=== PATIENT | male | born 1945 | race Caucasian/White ===

== ENCOUNTER 2016-12-20 12:54 | Observation (INO) | payer MEDICARE, BC ==
[~2016-12-20] VITALS: Ht 182.9 cm; Wt 95.3 kg
[2016-12-20 13:47] LABS: HEMOGLOBIN 15.3 gm/dl (14.0-17.5); RED BLOOD COUNT 5.06 M/UL (4.20-5.50); WHITE BLOOD COUNT 9.5 K/UL (4.5-11.0)
[2016-12-20 14:08] LABS: BUN/CREATININE RATIO 15 (0-10)
[2016-12-20] MEDS ORDERED: LISINOPRIL10 MG PO (18:37)
[2016-12-20] MEDS ORDERED: SIMVASTATIN20 MG PO (18:38)
[2016-12-21 04:24] LABS: HEMOGLOBIN 13.7 gm/dl (14.0-17.5); RED BLOOD COUNT 4.62 M/UL (4.20-5.50); WHITE BLOOD COUNT 10.1 K/UL (4.5-11.0)
[2016-12-21 04:41] LABS: BUN/CREATININE RATIO 23 (0-10)
[2016-12-22 04:08] LABS: HEMOGLOBIN 13.4 gm/dl (14.0-17.5); RED BLOOD COUNT 4.51 M/UL (4.20-5.50)
[2016-12-22 04:11] LABS: WHITE BLOOD COUNT 19.9 K/UL (4.5-11.0)
[2016-12-22] MEDS ORDERED: SYMBICORT 16010.2 GM INH (15:13)
[2016-12-22] MEDS ORDERED: OMNICEF 300 MG300 MG PO (15:13)
[2016-12-22] MEDS ORDERED: PROAIR HFA8.5 GM INH (15:14)
[2016-12-22] MEDS ORDERED: PREDNISONE 10 M10 MG PO (15:15)
== END 2016-12-22 16:00 | disposition home or self-care (01) ==
LOC: ER1 12:54 → ZEROF 15:50 → MED SURG 4 15:50
PROVIDERS: Emergency Medicine; ADMIT Internal Medicine
DX: J44.1 Chronic obstructive pulmonary disease with (acute) exacerbation (principal); I10 Essential (primary) hypertension; E78.5 Hyperlipidemia, unspecified; F17.210 Nicotine dependence, cigarettes, uncomplicated; Z90.2 Acquired absence of lung [part of]; Z85.118 Personal history of other malignant neoplasm of bronchus and lung; Z79.899 Other long term (current) drug therapy; Z82.49 Family history of ischemic heart disease and other diseases of the circulatory system; Z83.3 Family history of diabetes mellitus
CPT/HCPCS: 36415; 36600; 71010; 80053; 82550; 82553; 82803; 83605; 83874; 83880; 84484; 85025; 87040; 87070; 87205; 93005; 94640; 94664; 96361; 96365; 96366; 96375; 99285; G0378; J0696; J1956; J2930; J7050